=== PATIENT | female | born 1950 | race Caucasian/White ===

== ENCOUNTER → 2020-07-17 | Outpatient (CLI) | payer MEDICARE ==
[~2020-07-17] MED LIST: ACET325 PO; ALEN70; ALLOPURINOL100 M1 PO; ANAS1 PO; ASPI81CH PO; CELE200 PO; DIAZ5 PO; DIAZEPAM5 M2 PO; ENOX40I SQ; ENOX80I SQ; HYDACE10B; LEVFLO500 PO; Loperamide2 MG PO; METO10 PO; METO5A PO; OLME20-12. PO; OMEP20ER PO; OXYACE5T PO; PRAM.125; PROC5 PO; PROM25 PO; RXPROM25 PO; RXSULTRIDS PO; RXTRAM50 PO; SACC250C; SULTRIDS PO; TRAM50 PO; VITAMINS; WARF7.5
[2020-07-21 15:09] LABS: HSV-1 DNA Negative (Negative); HSV-2 DNA Negative (Negative)
== END | disposition home or self-care (01) ==
LOC: LAB SHORT 12:00 → LAB 12:00
PROVIDERS: Physician Assistant Medical
DX: R21 Rash and other nonspecific skin eruption (principal)
CPT/HCPCS: 87529; 87798

== ENCOUNTER 2020-10-03 08:47 | Emergency (ER) | payer OTHER, MEDICARE ==
[~2020-10-03] VITALS: Ht 172.7 cm; Wt 93.0 kg
[~2020-10-03 08:47] MED LIST changes: -ALLOPURINOL100 M1 PO; -DIAZEPAM5 M2 PO
[2020-10-03] MEDS ORDERED: ALLOPURINOL100 M1 PO (08:53)
[2020-10-03] MEDS ORDERED: DIAZEPAM5 M2 PO (08:54)
== END 2020-10-03 11:05 | disposition home or self-care (01) ==
LOC: ER 08:47
DX: S90.31XA Contusion of right foot, initial encounter (principal); Z88.0 Allergy status to penicillin; Z79.899 Other long term (current) drug therapy; Z87.891 Personal history of nicotine dependence; V43.51XA Car driver injured in collision with sport utility vehicle in traffic accident, initial encounter; Y92.410 Unspecified street and highway as the place of occurrence of the external cause
CPT/HCPCS: 12001; 73630; 90471; 99284-25

== ENCOUNTER 2023-06-06 10:26 | Inpatient (IN) | payer MEDICARE ==
[~2023-06-06] VITALS: Ht 167.6 cm; Wt 97.7 kg
[~2023-06-06 10:26] MED LIST changes: +ALLOPURINOL100 M1 PO; +DIAZEPAM5 M2 PO
[2023-06-06 10:54] LABS: BASOPHILS ABSOLUTE AUTO 0.04 K/mm3 (0.00-0.23); BASOPHILS PERCENT AUTO 1 % (0-2); EOSINOPHILS ABSOLUTE AUTO 0.31 K/mm3 (0.00-0.68); EOSINOPHILS PERCENT AUTO 6 % (0-6); Hematocrit 37.8 % (33.0-51.0); Hemoglobin 13.4 g/dL (11.5-16.0); IMMATURE GRAN ABSOLUTE AUTO 0.03 K/mm3 (0.00-0.10); IMMATURE GRAN PERCENT AUTO 1 % (0-1); LYMPHOCYTES ABSOLUTE AUTO 0.63 K/mm3 (0.84-5.20); LYMPHOCYTES PERCENT AUTO 11 % (21-46); MONOCYTES PERCENT AUTO 9 % (4-13); Mean Corpuscular HGB 36.1 pg (26.0-34.0); Mean Corpuscular HGB Conc 35.4 g/dL (31.5-36.5); Mean Corpuscular Volume 102 fL (80-100); Mean Platelet Volume 8.4 fL (9.1-12.4); NEUTROPHILS ABSOLUTE AUTO 4.02 K/mm3 (1.96-9.15); NEUTROPHILS PERCENT AUTO 73 % (41-73); Platelet Count 230 K/mm3 (150-400); RDW Coefficient Variation 11.5 % (11.7-14.2); RDW Standard Deviation 43.2 fL (35.1-46.3); Red Blood Cell Count 3.71 M/mm3 (3.80-5.20); White Blood Cell Count 5.53 K/mm3 (4.00-11.30)
[2023-06-06 11:30] LABS: Albumin, Blood 3.4 g/dL (3.4-5.0); Albumin/Globulin Ratio 0.9 (0.8-1.8); Bilirubin, Total 0.5 mg/dL (0.1-1.0); Bun/Creatinine Ratio 6.4 (12.0-20.0); Calcium, Blood 9.1 mg/dL (8.5-10.1); Creatinine, Blood 0.47 mg/dL (0.40-1.00); Globulin, Blood 3.6 g/dL (2.2-4.0); Potassium, Blood 3.8 mmol/L (3.5-5.5)
[2023-06-06 11:50] LABS: Influenza A, PCR NEGATIVE (NEGATIVE); Influenza B, PCR NEGATIVE (NEGATIVE); Resp Syncytial Virus, PCR NEGATIVE (NEGATIVE); SARS-Cov-2 (COVID-19) PCR, MMC NEGATIVE (NEGATIVE)
[2023-06-06] MEDS ORDERED: LEVFLO500 PO (12:22)
[2023-06-06] MEDS ORDERED: ZOCOR20 MG PO (12:23)
[2023-06-06] MEDS ORDERED: PRAM.125 PO (12:23)
[2023-06-06] MEDS ORDERED: MethylPREDNISolone Sod Succ 125 MG Vial IV ONE (12:35)
[2023-06-06] MEDS ORDERED: Ipratropium/Albuterol SulF 2.5-0.5MG/3 ML Amp INH ONE (12:35)
[2023-06-06 13:32] LABS: Source, Urine Clean Catch
[2023-06-06 13:49] LABS: Sodium, Urine, Random 10 mmol/L (20-110)
[2023-06-06 13:52] LABS: Osmolality, Urine 65 mos/kg (15-1400)
[2023-06-06 13:56] LABS: Appearance, Urine Clear (Clear); Bilirubin, Urine Neg (Neg); Blood, Urine Neg (Neg); Color, Urine Yellow (P-Yellow); Glucose Qualitative, Urine Neg (Neg); Ketones, Urine Neg (Neg); Leukocyte Esterase, Urine Neg (Neg); Nitrite, Urine Neg (Neg); Protein, Urine Neg (Neg); Specific Gravity, Urine 1.005 (1.003-1.022); Urobilinogen, Urine NORM (Normal)
[2023-06-06] MEDS ORDERED: Prednisone20 MG PO (15:30)
[2023-06-06] MEDS ORDERED: Acetaminophen 325 MG TABLET PO PRN (17:20)
[2023-06-06] MEDS ORDERED: FLU VACC QS2023-24(6MOS UP)/PF 60 MCG/0.5 ML SYRINGE IM SCH (17:25)
[2023-06-06] MEDS ORDERED: Azithromycin 250 MG Tab PO SCH (18:00)
[2023-06-06] MEDS ORDERED: MethylPREDNISolone Sod Succ 125 MG Vial IV SCH (18:00)
[2023-06-06] MEDS ORDERED: EUTHYROX50 MCG PO (19:33)
[2023-06-06] MEDS ORDERED: HYDCHL25 PO (19:34)
[2023-06-06] MEDS ORDERED: Allopurinol 100 MG Tab PO SCH (21:00)
[2023-06-06] MEDS ORDERED: Pramipexole DI-HCL 0.25 MG Tab PO SCH (21:00)
[2023-06-06 21:31] VITALS: BP 127/75
[2023-06-06 22:15] LABS: Bun/Creatinine Ratio 10.3 (12.0-20.0); Calcium, Blood 9.5 mg/dL (8.5-10.1); Creatinine, Blood 0.49 mg/dL (0.40-1.00); Potassium, Blood 4.3 mmol/L (3.5-5.5)
[2023-06-07] MEDS ORDERED: Ipratropium/Albuterol SulF 2.5-0.5MG/3 ML Amp INH SCH (00:30)
[2023-06-07] MEDS ORDERED: Albuterol HFA200 ACT/6.7 GM INH INH PRN (00:30)
[2023-06-07 04:27] VITALS: BP 122/61
[2023-06-07 05:46] LABS: BASOPHILS PERCENT AUTO 0 % (0-2); EOSINOPHILS PERCENT AUTO 0 % (0-6); Hematocrit 38.5 % (33.0-51.0); Hemoglobin 13.5 g/dL (11.5-16.0); IMMATURE GRAN ABSOLUTE AUTO 0.02 K/mm3 (0.00-0.10); IMMATURE GRAN PERCENT AUTO 0 % (0-1); LYMPHOCYTES ABSOLUTE AUTO 0.41 K/mm3 (0.84-5.20); LYMPHOCYTES PERCENT AUTO 9 % (21-46); MONOCYTES ABSOLUTE AUTO 0.07 K/mm3 (0.16-1.47); MONOCYTES PERCENT AUTO 2 % (4-13); Mean Corpuscular HGB 35.9 pg (26.0-34.0); Mean Corpuscular HGB Conc 35.1 g/dL (31.5-36.5); Mean Corpuscular Volume 102 fL (80-100); Mean Platelet Volume 8.8 fL (9.1-12.4); NEUTROPHILS PERCENT AUTO 90 % (41-73); Platelet Count 249 K/mm3 (150-400); RDW Coefficient Variation 11.3 % (11.7-14.2); RDW Standard Deviation 42.5 fL (35.1-46.3); Red Blood Cell Count 3.76 M/mm3 (3.80-5.20)
[2023-06-07] MEDS ORDERED: Levothyroxine Sodium 0.05 MG Tab PO SCH (06:00)
[2023-06-07] MEDS ORDERED: Omeprazole 20 MG CapCR PO SCH (06:00)
[2023-06-07 07:06] LABS: Albumin/Globulin Ratio 0.8 (0.8-1.8); Bilirubin, Total 0.4 mg/dL (0.1-1.0); Calcium, Blood 8.8 mg/dL (8.5-10.1); Creatinine, Blood 0.43 mg/dL (0.40-1.00); Globulin, Blood 3.7 g/dL (2.2-4.0); Potassium, Blood 4.4 mmol/L (3.5-5.5); Total Protein, Blood 6.7 g/dL (6.4-8.2)
[2023-06-07 07:36] VITALS: BP 108/67
--- NOTE | 2023-06-07 08:31 | NUR ---
Rn summary: Patient was received from ED. Patient is alert and oriented but very tired. She is having difficulty staying awake. Arouses easily but drifts quickly back to sleep. Patient has a non productive cough. When biox was placed by respiratory therapy pt O2 sats were mid 70's while sleeping on 2 liters. Pt O2 increased to 5 liters and sats up to 94-95%. Tele shows SR at 99. No skin breakdown noted. Pt is on a free water restriction. Call light in reach, uses appropriately, needs SBA, bed alarm on for safety.
[2023-06-07] MEDS ORDERED: HydroCHLOROthiazide 25 mg Tab PO SCH (09:00)
[2023-06-07] MEDS ORDERED: Enoxaparin 40 MG/0.4 ML SYR SC SCH (09:00)
[2023-06-07] MEDS ORDERED: Atorvastatin 10 MG Tab PO SCH (09:00)
[2023-06-07 17:01] VITALS: BP 115/72
--- NOTE | 2023-06-07 18:10 | NUR ---
SHIFT SUMMARY Pt remains A&Ox3. VSS. Denies pain. Resp even nonlabored at rest. SOB with exertion. 2000ml fluid restriction in place. Ambulates to bathroom independently. No acute distress this shift.
[2023-06-07 20:39] VITALS: BP 134/75
[2023-06-08 02:17] VITALS: BP 100/65
--- NOTE | 2023-06-08 05:12 | NUR ---
SHIFT SUMMARY NOC A/O X 4. PLEASANT AND COOPERATIVE WITH CARE. PT HAD SOME SLIGHT WHEEZING WHEN SHIFT ASSESSMENT PERFORMED. FLUTTER VALVE THERAPY INITIATED AND PT REPORTS THAT SECRETIONS HAVE BEEN LOOSENING UP AND ABLE TO EXPEL THEM EASIER. SPUTUM SAMPLE STILL UNCOLLECTED. PT STARTED ON O2 2L/N THEN BEGAN TO DESATURATE WHEN FALLING ASLEEP. O2 INCREASED TO 5L/NC FOR SLEEP SPO2 > 92% ON CONTINUOS BIOX. PT ON TELE RUNNING SINUS TACH IN LOW 100'S. PT HAS HOME O2 EVALUATION SCHEDULED FOR TODAY TO DETERMINE HOME O2 REQUIRMENTS UPON DISCHARGE. PT IS CURRENTLY RESTING WITH BED IN LOWEST POSITION, AND CALL LIGHT WITHIN REACH.
[2023-06-08 05:18] LABS: BASOPHILS PERCENT AUTO 0 % (0-2); EOSINOPHILS PERCENT AUTO 0 % (0-6); Hemoglobin 12.6 g/dL (11.5-16.0); IMMATURE GRAN ABSOLUTE AUTO 0.04 K/mm3 (0.00-0.10); IMMATURE GRAN PERCENT AUTO 0 % (0-1); LYMPHOCYTES ABSOLUTE AUTO 0.61 K/mm3 (0.84-5.20); LYMPHOCYTES PERCENT AUTO 6 % (21-46); MONOCYTES ABSOLUTE AUTO 0.29 K/mm3 (0.16-1.47); MONOCYTES PERCENT AUTO 3 % (4-13); Mean Corpuscular HGB 35.9 pg (26.0-34.0); Mean Corpuscular Volume 103 fL (80-100); Mean Platelet Volume 8.8 fL (9.1-12.4); NEUTROPHILS ABSOLUTE AUTO 8.62 K/mm3 (1.96-9.15); NEUTROPHILS PERCENT AUTO 90 % (41-73); Platelet Count 250 K/mm3 (150-400); RDW Coefficient Variation 11.5 % (11.7-14.2); Red Blood Cell Count 3.51 M/mm3 (3.80-5.20); White Blood Cell Count 9.56 K/mm3 (4.00-11.30)
[2023-06-08 05:59] LABS: Albumin, Blood 3.1 g/dL (3.4-5.0); Albumin/Globulin Ratio 0.9 (0.8-1.8); Bilirubin, Total 0.4 mg/dL (0.1-1.0); Bun/Creatinine Ratio 29.1 (12.0-20.0); Calcium, Blood 9.4 mg/dL (8.5-10.1); Creatinine, Blood 0.52 mg/dL (0.40-1.00); Globulin, Blood 3.4 g/dL (2.2-4.0); Potassium, Blood 4.5 mmol/L (3.5-5.5); Total Protein, Blood 6.5 g/dL (6.4-8.2)
[2023-06-08 07:32] VITALS: BP 135/76
[2023-06-08] MEDS ORDERED: Fluticasone 0.05% Nasal Spray SCH (09:00)
[2023-06-08] MEDS ORDERED: Anastrozole 1 MG TAB PO SCH (09:00)
[2023-06-08] MEDS ORDERED: GuaiFENesin 100 MG/5 ML 5ML UDC PO ONE (09:00)
[2023-06-08] MEDS ORDERED: PredniSONE 20 MG Tab PO SCH (09:00)
[2023-06-08] MEDS ORDERED: GuaiFENesin 100 MG/5 ML 5ML UDC PO PRN (09:00)
[2023-06-08] MEDS ORDERED: GuaiFENesin 200 MG IR Tab PO PRN (09:40)
[2023-06-08] MEDS ORDERED: Acetylcysteine 200 MG/ML 4ML Vial INH ONE (10:00)
[2023-06-08] MEDS ORDERED: FLONASE ALLERG9.9 ML (13:59)
[2023-06-08] MEDS ORDERED: GUAI200 PO (13:59)
[2023-06-08] MEDS ORDERED: ALBU90OI INH (13:59)
[2023-06-08] MEDS ORDERED: IPRAT-ALBUT 0.5-3 ML INH (14:00)
[2023-06-08] MEDS ORDERED: PRED20 PO (14:00)
--- NOTE | 2023-06-08 19:37 | NUR ---
SHIFT SUMMARY AND DISCHARGE PATIENT ALERT AND INDEPENDENT. PATIENT CONTINUES ON 02 AT 1L. BIOX 94 AT REST BUT DROPS TO 89 WITH ACTIVITY. PATIENT CONTINUES TO HAVE COARSE LUNGS WITH WHEEZES IN THE UPPER LOBES. PATIENT STATES LUNG ISSUES NEW FOR PATIENT. PROVIDED EDUCATION ON THE IMPORTANCE OF WEARING O2 WITH ACTIVITY. PORTABLE O2 CONCENTRATOR BROUGHT TO THE HOSPITAL FOR DISCHARGE. PATIENT EDUCATED ON USE BY EXTERNAL PROVIDER. DISCHARGE INSTRUCTIONS REVIEWED WITH PATIENT. IV DC'D PRIOR TO DISCHARGE. TELE REMOVED. ROOM CHECK DONE PRIOR TO PATIENT DISCHARGING. PATIENT TRANSPORTED OUT VIA WHEELCHAIR.
== END 2023-06-08 15:38 | disposition home or self-care (01) | DRG 196 ==
LOC: ER 10:26 → MEDS 17:19 → ENPENDDIS 06-08 11:11 → MEDS 06-08 15:38
PROVIDERS: Emergency Medicine; Family Medicine; Physician Assistant; Student in an Organized Health Care Education/Training Program; ADMIT Hospitalist
DX: J84.10 Pulmonary fibrosis, unspecified (principal); J96.01 Acute respiratory failure with hypoxia; E87.1 Hypo-osmolality and hyponatremia; J43.9 Emphysema, unspecified; J40 Bronchitis, not specified as acute or chronic; C50.912 Malignant neoplasm of unspecified site of left female breast; E86.1 Hypovolemia; C50.911 Malignant neoplasm of unspecified site of right female breast; I10 Essential (primary) hypertension; T50.2X5A Adverse effect of carbonic-anhydrase inhibitors, benzothiadiazides and other diuretics, initial encounter; Z79.811 Long term (current) use of aromatase inhibitors; Z90.13 Acquired absence of bilateral breasts and nipples; Z86.718 Personal history of other venous thrombosis and embolism; Z86.73 Personal history of transient ischemic attack (TIA), and cerebral infarction without residual deficits; Z88.8 Allergy status to other drugs, medicaments and biological substances; Z88.0 Allergy status to penicillin; Z11.52 Encounter for screening for COVID-19
CPT/HCPCS: 0241U; 36415; 71046; 71260; 80048; 80053; 81003; 83735; 83880; 83930; 83935; 84300; 85025; 93005; 93010; 94640; 94664; 94761; 94762; 96374-59; 96376-59; 99285-25; A9270; J1650; J2930; J7512; Q9967

== ENCOUNTER 2023-06-19 06:51 | Emergency (ER) | payer MEDICARE ==
[~2023-06-19] VITALS: Ht 172.7 cm; Wt 93.0 kg
[~2023-06-19 06:51] MED LIST changes: +ALBU90OI INH; +EUTHYROX50 MCG PO; +FLONASE ALLERG9.9 ML; +GUAI200 PO; +HYDCHL25 PO; +IPRAT-ALBUT 0.5-3 ML INH; +PRAM.125 PO; +PRED20 PO; +Prednisone20 MG PO; +ZOCOR20 MG PO
[2023-06-19 07:52] LABS: BASOPHILS ABSOLUTE AUTO 0.04 K/mm3 (0.00-0.23); BASOPHILS PERCENT AUTO 1 % (0-2); EOSINOPHILS PERCENT AUTO 8 % (0-6); Hematocrit 39.3 % (33.0-51.0); Hemoglobin 13.7 g/dL (11.5-16.0); IMMATURE GRAN ABSOLUTE AUTO 0.03 K/mm3 (0.00-0.10); IMMATURE GRAN PERCENT AUTO 0 % (0-1); LYMPHOCYTES ABSOLUTE AUTO 0.84 K/mm3 (0.84-5.20); LYMPHOCYTES PERCENT AUTO 12 % (21-46); MONOCYTES ABSOLUTE AUTO 0.53 K/mm3 (0.16-1.47); MONOCYTES PERCENT AUTO 7 % (4-13); Mean Corpuscular HGB 35.7 pg (26.0-34.0); Mean Corpuscular HGB Conc 34.9 g/dL (31.5-36.5); Mean Corpuscular Volume 102 fL (80-100); Mean Platelet Volume 9.1 fL (9.1-12.4); NEUTROPHILS ABSOLUTE AUTO 5.09 K/mm3 (1.96-9.15); NEUTROPHILS PERCENT AUTO 71 % (41-73); Platelet Count 242 K/mm3 (150-400); RDW Coefficient Variation 11.4 % (11.7-14.2); RDW Standard Deviation 42.9 fL (35.1-46.3); Red Blood Cell Count 3.84 M/mm3 (3.80-5.20); White Blood Cell Count 7.13 K/mm3 (4.00-11.30)
[2023-06-19 08:14] LABS: Albumin, Blood 3.4 g/dL (3.4-5.0); Albumin/Globulin Ratio 0.9 (0.8-1.8); Bilirubin, Total 0.9 mg/dL (0.1-1.0); Calcium, Blood 9.6 mg/dL (8.5-10.1); Creatinine, Blood 0.43 mg/dL (0.40-1.00); Globulin, Blood 3.8 g/dL (2.2-4.0); Potassium, Blood 3.5 mmol/L (3.5-5.5); Total Protein, Blood 7.2 g/dL (6.4-8.2)
[2023-06-19] MEDS ORDERED: Ipratropium/Albuterol SulF 2.5-0.5MG/3 ML Amp INH ONE (08:30)
[2023-06-19] MEDS ORDERED: Benzonatate 100 MG Cap PO ONE (10:05)
[2023-06-19] MEDS ORDERED: PredniSONE 20 MG Tab PO ONE (10:25)
[2023-06-19] MEDS ORDERED: Prednisone20 MG PO (10:27)
[2023-06-19] MEDS ORDERED: BENZ100A PO ×2 (10:27→10:30)
[2023-06-19] MEDS ORDERED: BREZTRI AEROS10.7 GM INH (10:27)
[2023-06-19 10:43] VITALS: BP 141/97
== END 2023-06-19 10:51 | disposition home or self-care (01) ==
LOC: ER 06:51
PROVIDERS: Emergency Medicine
DX: J42 Unspecified chronic bronchitis (principal); Z85.3 Personal history of malignant neoplasm of breast; Z88.0 Allergy status to penicillin; Z88.8 Allergy status to other drugs, medicaments and biological substances; Z79.899 Other long term (current) drug therapy; Z79.52 Long term (current) use of systemic steroids; Z87.891 Personal history of nicotine dependence
CPT/HCPCS: 71046; 80053; 83880; 84484; 85025; 93005; 93010; 94640; 94664; 99285-25; A9270; J7512

== ENCOUNTER → 2024-03-22 | Outpatient (CLI) | payer MEDICARE ==
[~2024-03-22] MED LIST changes: +ASMANEX220 M14 INH; +BENZ100A PO; +BREZTRI AEROS10.7 GM INH; +DILT120 PO; +FURO20 PO; +Mirapex0.5 MG PO; +POTA10T PO; -PRAM.125 PO; +Prednisone10 MG PO; +Tessalon200 MG PO
== END ==
LOC: LAB 09:45 → LAB SHORT 09:45
DX: R06.2 Wheezing (principal)
CPT/HCPCS: 87070; 87205

== ENCOUNTER 2024-10-29 10:48 | Observation (INO) | payer MEDICARE ==
[~2024-10-29] VITALS: Ht 172.7 cm; Wt 104.3 kg
[2024-10-29] MEDS ORDERED: TIOT18 INH (11:16)
[2024-10-29] MEDS ORDERED: Benztropine Mesylate 1 MG/ML 2ML Amp IV ONE (11:50)
[2024-10-29] MEDS ORDERED: Metoclopramide HCl 5MG / ML 2ML Vial IV ONE ×2 (11:50→21:30)
[2024-10-29] MEDS ORDERED: NS 1,000 ML IV SCH ×3 (11:50→16:15)
[2024-10-29] MEDS ORDERED: Ketorolac Tromethamine 30mg Vial IV ONE (11:50)
[2024-10-29 12:07] LABS: BASOPHILS ABSOLUTE AUTO 0.02 K/mm3 (0.00-0.23); BASOPHILS PERCENT AUTO 0 % (0-2); EOSINOPHILS ABSOLUTE AUTO 0.00 K/mm3 (0.00-0.68); EOSINOPHILS PERCENT AUTO 0 % (0-6); Hematocrit 41.1 % (33.0-51.0); Hemoglobin 14.5 g/dL (11.5-16.0); IMMATURE GRAN ABSOLUTE AUTO 0.03 K/mm3 (0.00-0.10); IMMATURE GRAN PERCENT AUTO 0 % (0-1); LYMPHOCYTES ABSOLUTE AUTO 0.97 K/mm3 (0.84-5.20); LYMPHOCYTES PERCENT AUTO 13 % (21-46); MONOCYTES ABSOLUTE AUTO 0.59 K/mm3 (0.16-1.47); MONOCYTES PERCENT AUTO 8 % (4-13); Mean Corpuscular HGB Conc 35.3 g/dL (31.5-36.5); Mean Corpuscular Volume 97 fL (80-100); NEUTROPHILS ABSOLUTE AUTO 6.04 K/mm3 (1.96-9.15); NEUTROPHILS PERCENT AUTO 79 % (41-73); NRBC ABSOLUTE 0.00 K/mm3 (0.00-0.02); NRBC Auto 0.0 /100 WBC (0.0-0.2); Platelet Count 279 K/mm3 (150-400); RDW Coefficient Variation 12.1 % (11.7-14.2); RDW Standard Deviation 43.1 fL (35.1-46.3)
[2024-10-29 12:10] LABS: Alanine Aminotransfer (ALT/SGP 21.0 U/L (12-78); Albumin, Blood 3.8 g/dL (3.4-5.0); Albumin/Globulin Ratio 0.9 (0.8-1.8); Anion Gap 9.0 mmol/L (3-11); Aspartate Aminotrans (AST/SGOT 21.0 U/L (12-37); Bilirubin, Direct 0.2 mg/dL (0.0-0.3); Bilirubin, Indirect 0.5 mg/dL (0.1-0.7); Bilirubin, Total 0.7 mg/dL (0.1-1.0); Blood Urea Nitrogen 7.0 mg/dL (8-24); CO2, Blood 30.0 mmol/L (21-32); Calcium, Blood 10.0 mg/dL (8.5-10.1); Chloride, Blood 88.0 mmol/L (98-108); Creatinine, Blood 0.52 mg/dL (0.40-1.00); Globulin, Blood 4.3 g/dL (2.2-4.0); Glucose, Blood 140.0 mg/dL (70-99); Potassium, Blood 2.8 mmol/L (3.5-5.5); Sodium, Blood 124.0 mmol/L (136-145); Total Protein, Blood 8.1 g/dL (6.4-8.2)
[2024-10-29 13:38] LABS: Source, Urine Straight Cath
[2024-10-29] MEDS ORDERED: Magnesium Sulf 2 GM/Water 50ML 50 ML IV ONE (13:55)
[2024-10-29] MEDS ORDERED: Potassium Chl 20MEQ/Water100ML 100 ML IV SCH (14:00)
[2024-10-29 14:07] LABS: Bilirubin, Urine Neg (Neg); Glucose Qualitative, Urine Neg (Neg); Ketones, Urine 1+ (Neg); Leukocyte Esterase, Urine Neg (Neg); Protein, Urine 2+ (Neg); Specific Gravity, Urine 1.010 (1.003-1.022); Urobilinogen, Urine NORM (Normal)
[2024-10-29 14:57] LABS: Color, Urine Pale Yellow (P-Yellow)
[2024-10-29 15:01] LABS: Red Blood Cells, Urine Not Seen /hpf (0-2); White Blood Cells, Urine 0-2 /hpf (0-5)
[2024-10-29] MEDS ORDERED: Albuterol HFA200 ACT/6.7 GM INH INH PRN (16:20)
[2024-10-29] MEDS ORDERED: Ipratropium Bromide INH 0.02% 0.5 mg/2.5ML Vial INH SCH (16:20)
[2024-10-29 16:37] VITALS: BP 139/82
[2024-10-29 17:46] LABS: Anion Gap 9.0 mmol/L (3-11); Blood Urea Nitrogen 7.0 mg/dL (8-24); CO2, Blood 29.0 mmol/L (21-32); Calcium, Blood 9.5 mg/dL (8.5-10.1); Chloride, Blood 93.0 mmol/L (98-108); Creatinine, Blood 0.52 mg/dL (0.40-1.00); Glucose, Blood 125.0 mg/dL (70-99); Potassium, Blood 3.1 mmol/L (3.5-5.5); Sodium, Blood 128.0 mmol/L (136-145)
[2024-10-29 19:43] VITALS: BP 132/81
--- NOTE | 2024-10-29 19:47 | NUR ---
PT ADMITTED TO ROOM 330 FROM ED 1630. AMBULATED TO BED, ALERT AND ORIENTED X4, STEADY ON FEET WITH CANE. IV KCL RUNNING WITH A BOLUS OF NS UNDERWAY. PT DENIES NAUSEA. OFFEERED FLUIDS AND TOLD HER WE COULD SLOWLY ADAT.ORIENTED TO ROOM SET UP, AND SAFETY. VOIDING WITHOUD DIFFICULTY. PT STATES LAST STOOL WAS LAST NIGHT AND IT WAS LIQUID. UNABLE TO HAVE ACC I/O. VOIDS ARE MISSING HAT WAITING FOR STOOL SPEC, SET UP CONTACT ISO UNTIL C DIFF CLEARED. REPORTED TO DESMOND NEWBERRY RN [id number]
[2024-10-29] MEDS ORDERED: Tiotropium Bromide 2.5 MCG/ACT MIST INHAL (10 ACT/4 GM) INH SCH (21:00)
--- NOTE | 2024-10-29 21:27 | NUR ---
NOTIFIED THAT PHENERGAN IS NOT WORKING FOR PT. NEW ORDERS OBTAINED FOR BENADRYL 25MG IV NOW AND REGLAN 5MG IV NOW.
[2024-10-29] MEDS ORDERED: DiphenhydrAMINE HCl 50 MG/ML 1ML Vial IV ONE (21:30)
[2024-10-29 21:46] LABS: Anion Gap 7.0 mmol/L (3-11); Blood Urea Nitrogen 7.0 mg/dL (8-24); CO2, Blood 31.0 mmol/L (21-32); Calcium, Blood 9.1 mg/dL (8.5-10.1); Chloride, Blood 96.0 mmol/L (98-108); Creatinine, Blood 0.65 mg/dL (0.40-1.00); Glucose, Blood 110.0 mg/dL (70-99); Potassium, Blood 3.7 mmol/L (3.5-5.5); Sodium, Blood 130.0 mmol/L (136-145)
[2024-10-30 00:10] VITALS: BP 131/74
[2024-10-30 04:16] VITALS: BP 135/77
--- NOTE | 2024-10-30 04:29 | NUR ---
C.O.D. CLERK SUMMARY: PT A&O X4. USES CALL LIGHT APPROPRIATELY. NEW ORDERS OBTAINED FOR PERSISTENT NAUSEA AFTER RECEIVING PHENERGAN ORDERED. SEE PREVIOUS NURSE NOTES. REGLAN AND BENADRYL EFFECTIVE FOR NAUSEA. IV FLUIDS COMPLETED. CONTINUOUS BIOX IN PLACE. SATS MAINTAINED ABOVE 92% T/O SHIFT. INDEPENDENT WITH BED MOBILIT. 1 PERSON SBA WITH CANE. CARES ONGOING ORDERED. BED IN LOWEST POSITION. CALL LIGHT IN REACH.
[2024-10-30 05:22] LABS: BASOPHILS ABSOLUTE AUTO 0.03 K/mm3 (0.00-0.23); BASOPHILS PERCENT AUTO 0 % (0-2); EOSINOPHILS ABSOLUTE AUTO 0.08 K/mm3 (0.00-0.68); EOSINOPHILS PERCENT AUTO 1 % (0-6); Hematocrit 38.2 % (33.0-51.0); Hemoglobin 13.4 g/dL (11.5-16.0); IMMATURE GRAN ABSOLUTE AUTO 0.04 K/mm3 (0.00-0.10); IMMATURE GRAN PERCENT AUTO 1 % (0-1); LYMPHOCYTES ABSOLUTE AUTO 1.39 K/mm3 (0.84-5.20); LYMPHOCYTES PERCENT AUTO 19 % (21-46); MONOCYTES ABSOLUTE AUTO 0.85 K/mm3 (0.16-1.47); MONOCYTES PERCENT AUTO 11 % (4-13); Mean Corpuscular HGB Conc 35.1 g/dL (31.5-36.5); Mean Corpuscular Volume 99 fL (80-100); NEUTROPHILS ABSOLUTE AUTO 5.13 K/mm3 (1.96-9.15); NEUTROPHILS PERCENT AUTO 68 % (41-73); NRBC ABSOLUTE 0.00 K/mm3 (0.00-0.02); NRBC Auto 0.0 /100 WBC (0.0-0.2); Platelet Count 228 K/mm3 (150-400); RDW Coefficient Variation 12.6 % (11.7-14.2); RDW Standard Deviation 45.8 fL (35.1-46.3)
[2024-10-30 05:44] LABS: Alanine Aminotransfer (ALT/SGP 18.0 U/L (12-78); Albumin, Blood 3.2 g/dL (3.4-5.0); Albumin/Globulin Ratio 1.0 (0.8-1.8); Anion Gap 8.0 mmol/L (3-11); Aspartate Aminotrans (AST/SGOT 17.0 U/L (12-37); Bilirubin, Total 0.5 mg/dL (0.1-1.0); Blood Urea Nitrogen 7.0 mg/dL (8-24); CO2, Blood 30.0 mmol/L (21-32); Calcium, Blood 9.0 mg/dL (8.5-10.1); Chloride, Blood 101.0 mmol/L (98-108); Creatinine, Blood 0.51 mg/dL (0.40-1.00); Globulin, Blood 3.3 g/dL (2.2-4.0); Glucose, Blood 114.0 mg/dL (70-99); Magnesium, Blood 1.5 mg/dL (1.6-2.4); Potassium, Blood 3.7 mmol/L (3.5-5.5); Sodium, Blood 135.0 mmol/L (136-145); Total Protein, Blood 6.5 g/dL (6.4-8.2)
[2024-10-30] MEDS ORDERED: Mag Sulfate 1 GM/D5% 100ML 100 ML IV STA (06:28)
--- NOTE | 2024-10-30 06:28 | NUR ---
PT REPORTS TO THIS NURSE HER DESIRE TO D/C HOME TODAY OR TOMORROW SHE HAS AN "IMPORTANT ORTHO DR. APPOINTMENT TOMORROW." THIS NURSE ADVISED THAT DAY SHIFR RN WILL BE UPDATED THAT PT CAN DISCUSS FURTHER WITH MD AND RN. PT VERBALIZED UNDERSTANDING.
[2024-10-30 07:34] VITALS: BP 128/81
[2024-10-30] MEDS ORDERED: Fluticasone 0.05% Nasal Spray SCH (09:00)
[2024-10-30] MEDS ORDERED: Enoxaparin 40 MG/0.4 ML SYR SC SCH ×2 (09:00)
[2024-10-30 11:40] VITALS: BP 160/94
[2024-10-30] MEDS ORDERED: METO5A PO (12:21)
--- NOTE | 2024-10-30 20:29 | NUR ---
PT DISCHARGED 1430, WHEELCHAIR OUT TO PRIVATE CAR FOR SON TO DRIVE HER HOME. PT HAS HER OWN PORTABLE OXYGEN TO USE. PT WAS ABLE TO TOLERATE CLEAR LIQ DIET, BUT BECAME NAUSEATED DIRECTLY AFTER BREAKFAST. MEDICATED WITH ORAL PHENERGAN WITH MIN RELEIF. ORDERED ADDITIONAL REGLAN NEW RX. ONE TIME REGLAN 5MG DOSE ADMIN BEFORE DISCHARGE WITH PARTIAL RELEIF. PT INSTRUCTED ON BLAND DIET AND ELECTROLYTE SUPPLEMENT OPTIONS. PT ALSO AWARE SHE NEEDS TO FOLLOW UP WITN BASIC MET PANAL, HAS WRITTEN SCRIPT. PT DID NOT HAVE A BM THIS ENTIRE STAY BUT VOIDING CLEAR LIGHT YELLOW. INSTRUCTED TO STAY HYDRATED. PT INSISTANT ON DISCHARGE SO SHE CAN MAKE IT TO HER [facility] APT TOMORROW TO TAKE CARE OF THE OSTEONECROSIS RECENTLY DISCOVERED.
== END 2024-10-30 15:12 | disposition home or self-care (01) ==
LOC: ER 10:48 → MEDS 14:37
PROVIDERS: Student in an Organized Health Care Education/Training Program; ADMIT Hospitalist
DX: E87.1 Hypo-osmolality and hyponatremia (principal); E87.6 Hypokalemia; E83.42 Hypomagnesemia; R11.2 Nausea with vomiting, unspecified; R19.7 Diarrhea, unspecified; E86.0 Dehydration; Q21.12 Patent foramen ovale; R60.0 Localized edema; K21.9 Gastro-esophageal reflux disease without esophagitis; I10 Essential (primary) hypertension; E03.9 Hypothyroidism, unspecified; M87.875 Other osteonecrosis, left foot; J45.909 Unspecified asthma, uncomplicated; Z85.3 Personal history of malignant neoplasm of breast; Z86.73 Personal history of transient ischemic attack (TIA), and cerebral infarction without residual deficits; Z86.718 Personal history of other venous thrombosis and embolism; Z79.890 Hormone replacement therapy; Z79.899 Other long term (current) drug therapy; Z88.0 Allergy status to penicillin; Z88.8 Allergy status to other drugs, medicaments and biological substances
CPT/HCPCS: 36415; 74177; 80048; 80053; 81001; 82248; 83690; 83735; 85025; 93005; 93010; 94640; 94664; 94762; 96361; 96365-59; 96366; 96367; 96372; 96375; 96376; 99285-25; A9270; G0378; J0515; J1200; J1650; J1885; J2765; J3475; J3480; J7030; J7050; Q9967

== ENCOUNTER 2024-11-04 11:52 | Emergency (ER) | payer MEDICARE ==
[~2024-11-04] VITALS: Ht 172.7 cm; Wt 102.1 kg
[~2024-11-04 11:52] MED LIST changes: +TIOT18 INH
[2024-11-04 11:57] VITALS: BP 138/90
[2024-11-04 12:47] LABS: BASOPHILS ABSOLUTE AUTO 0.05 K/mm3 (0.00-0.23); BASOPHILS PERCENT AUTO 0 % (0-2); EOSINOPHILS ABSOLUTE AUTO 0.09 K/mm3 (0.00-0.68); EOSINOPHILS PERCENT AUTO 1 % (0-6); Hematocrit 42.8 % (33.0-51.0); Hemoglobin 15.0 g/dL (11.5-16.0); IMMATURE GRAN ABSOLUTE AUTO 0.05 K/mm3 (0.00-0.10); IMMATURE GRAN PERCENT AUTO 0 % (0-1); LYMPHOCYTES ABSOLUTE AUTO 1.42 K/mm3 (0.84-5.20); LYMPHOCYTES PERCENT AUTO 13 % (21-46); MONOCYTES ABSOLUTE AUTO 0.90 K/mm3 (0.16-1.47); MONOCYTES PERCENT AUTO 8 % (4-13); Mean Corpuscular HGB Conc 35.0 g/dL (31.5-36.5); Mean Corpuscular Volume 100 fL (80-100); NEUTROPHILS ABSOLUTE AUTO 8.63 K/mm3 (1.96-9.15); NEUTROPHILS PERCENT AUTO 78 % (41-73); NRBC ABSOLUTE 0.00 K/mm3 (0.00-0.02); NRBC Auto 0.0 /100 WBC (0.0-0.2); Platelet Count 341 K/mm3 (150-400); RDW Coefficient Variation 12.3 % (11.7-14.2); RDW Standard Deviation 45.1 fL (35.1-46.3)
[2024-11-04 13:06] LABS: Alanine Aminotransfer (ALT/SGP 21.0 U/L (12-78); Albumin, Blood 3.8 g/dL (3.4-5.0); Albumin/Globulin Ratio 1.0 (0.8-1.8); Anion Gap 7.0 mmol/L (3-11); Aspartate Aminotrans (AST/SGOT 19.0 U/L (12-37); Bilirubin, Total 0.6 mg/dL (0.1-1.0); Blood Urea Nitrogen 16.0 mg/dL (8-24); CO2, Blood 32.0 mmol/L (21-32); Calcium, Blood 10.0 mg/dL (8.5-10.1); Chloride, Blood 93.0 mmol/L (98-108); Creatinine, Blood 0.83 mg/dL (0.40-1.00); Globulin, Blood 4.0 g/dL (2.2-4.0); Glucose, Blood 111.0 mg/dL (70-99); Potassium, Blood 3.9 mmol/L (3.5-5.5); Sodium, Blood 128.0 mmol/L (136-145); Total Protein, Blood 7.8 g/dL (6.4-8.2)
[2024-11-04] MEDS ORDERED: Metoclopramide HCl 5MG / ML 2ML Vial IV ONE (16:20)
[2024-11-04] MEDS ORDERED: NS 1,000 ML IV SCH (16:20)
[2024-11-04] MEDS ORDERED: METO10 PO (18:43)
== END 2024-11-04 18:58 | disposition home or self-care (01) ==
LOC: ER 11:52
PROVIDERS: Emergency Medicine
DX: R11.2 Nausea with vomiting, unspecified (principal); R10.13 Epigastric pain; R10.12 Left upper quadrant pain; E87.1 Hypo-osmolality and hyponatremia; E87.8 Other disorders of electrolyte and fluid balance, not elsewhere classified; M41.9 Scoliosis, unspecified; Z86.718 Personal history of other venous thrombosis and embolism; Z86.73 Personal history of transient ischemic attack (TIA), and cerebral infarction without residual deficits; Z87.891 Personal history of nicotine dependence; Z88.0 Allergy status to penicillin; Z88.8 Allergy status to other drugs, medicaments and biological substances; Z88.5 Allergy status to narcotic agent; Z79.890 Hormone replacement therapy; Z79.899 Other long term (current) drug therapy
CPT/HCPCS: 74177; 80053; 83690; 85025; 93005; 93010; 96374-59; 99284-25; J2765; J7030; Q9967